=== PATIENT | female | born 1995 | race Caucasian/White ===

== ENCOUNTER 2024-04-19 09:56 | Emergency (ER) | payer SELFPAY ==
[~2024-04-19] VITALS: Ht 170.2 cm; Wt 99.5 kg
[2024-04-19 10:01] VITALS: TEMP 98.2
[2024-04-19] MEDS ORDERED: METF-81 PO (10:02)
[2024-04-19] MEDS ORDERED: HYDR200T38 PO (10:02)
[2024-04-19 10:29] LABS: EOSINOPHILS % (AUTO) 1.1 % (1.0-6.0); HEMOGLOBIN 13.3 g/dL (12.0-16.0); LYMPHOCYTES # (AUTO) 0.6 K/uL (1.0-4.8); LYMPHOCYTES % (AUTO) 13.1 % (22.0-44.0); MEAN CORPUSCULAR HEMOGLOBIN 30.2 pg (26.0-34.0); MEAN CORPUSCULAR VOLUME 89 fL (80-100); MONOCYTES # (AUTO) 0.3 K/uL (0.1-1.0); MONOCYTES % (AUTO) 6.9 % (2.0-9.0); NEUTROPHILS # (AUTO) 3.8 K/uL (1.8-7.7); NEUTROPHILS % (AUTO) 77.9 % (40.0-70.0); PLATELET COUNT (AUTO) 168 K/uL (150-450); RED BLOOD CELL COUNT(AUTO) 4.39 MIL/uL (4.00-5.20); RED CELL DISTRIBUTION WIDTH 13.5 % (11.5-14.5); WHITE BLOOD COUNT (AUTO) 4.9 K/uL (4.5-11.0)
[2024-04-19] MEDS: SODIUM CHLORIDE 0.9% 1,000 ML IV ONE (10:37)
[2024-04-19 10:45] LABS: BILIRUBIN,DIRECT 0.1 mg/dL (0.00-0.20); BILIRUBIN,TOTAL 0.4 mg/dL (0.1-1.0); TOTAL PROTEIN, SERUM 6.7 g/dL (6.4-8.2)
[2024-04-19 10:54] LABS: ANION GAP 6 mmol/L (8-16); CALCIUM, TOTAL 9.2 mg/dL (8.8-10.5); CARBON DIOXIDE 29 mmol/L (22-29); CHLORIDE 95 mmol/L (98-107); CREATININE 0.68 mg/dL (0.60-1.30); GLOMERULAR FILTR. RATE CALC > 60 mL/min (>60); POTASSIUM 4.6 mmol/L (3.5-5.1); SODIUM SERUM 130 mmol/L (136-145); TROPONIN I-HIGH SENSITIVITY 14 ng/L (<51); UREA NITROGEN, BLOOD 10 mg/dL (7-18)
[2024-04-19 10:55] LABS: GLUCOSE,RANDOM 476 mg/dL (70-110)
[2024-04-19 11:15] LABS: THYROID STIMULATING HORMONE 1.57 uIU/mL (0.36-3.74)
[2024-04-19] MEDS: INSULIN REGULAR, HUMAN 100 UNITS/ML IVP ONE (11:20)
[2024-04-19 12:00] VITALS: BP 127/83; PULSE 78; RESP 18; O2SAT 99
== END 2024-04-19 12:26 | disposition home or self-care (01) ==
LOC: EMS 10:13
DX: E11.65 Type 2 diabetes mellitus with hyperglycemia (principal); Z79.84 Long term (current) use of oral hypoglycemic drugs
CPT/HCPCS: 99284; 96374; 96361; 80048; 80076; 84443; 84484; 84703; 85025; 36415; 82962; 93005; J7030; J1815